=== PATIENT | male | born 1950 | race Caucasian/White ===

== ENCOUNTER 2022-11-13 08:46 | Emergency (ER) | payer MEDICARE, OTHER ==
[2022-11-13] MEDS ORDERED: Acetaminophen/HYDROcodone 325-5 MG Tab PO ONE (09:31)
== END 2022-11-13 11:13 | disposition home or self-care (01) ==
LOC: JD.ED 08:46
DX: S82.831A Other fracture of upper and lower end of right fibula, initial encounter for closed fracture (principal); W00.0XXA Fall on same level due to ice and snow, initial encounter; X50.1XXA Overexertion from prolonged static or awkward postures, initial encounter
CPT/HCPCS: 73610-26-RT; 73610-RT; 99283; A9270-GY